=== PATIENT | female | born 1990 | race African-American/Black ===

== ENCOUNTER 2019-10-31 23:01 | Emergency (ER) | payer OTHER ==
[~2019-10-31] VITALS: Ht 162.6 cm; Wt 115.0 kg
[2019-10-31] MEDS ORDERED: AMLO10TA8 PO (23:34)
[2019-11-01] MEDS ORDERED: ONDANSETRON ODT 4 MG TAB.RAPDIS. PO ONE (00:15)
[2019-11-01 00:24] LABS: BARBITURATES NEG (NEG); BENZODIAZEPINES NEG (NEG); CANNABINOIDS NEG (NEG); COCAINE NEG (NEG); METHADONE NEG (NEG); OPIATES NEG (NEG); PHENCYCLIDINE NEG (NEG)
[2019-11-01 00:32] LABS: AMPHETAMINE/METHAMPHETAMINE NEG (NEG)
--- NOTE | 2019-11-01 00:44 | PHYS DOC ---
Past Medical History Past Medical History: Anxiety, Hypertension Past Surgical History: No Surgical History Alcohol Use: None Adult General Chief Complaint Chief Complaint: NAUSEA/VOMITING/DIARRHA HPI HPI 28-year-old female presents to the emergency department with complaints of burning nausea or vomiting. Patient was drinking juice around 10 PM she noticed a burning sensation in her mouth and throat as well as nausea with vomiting. Patient is approximately 8 weeks 6 days. She does have underlying history of hypertension. Blood pressure significantly elevated here in the emergency department. The headache or visual change, chest pain, abdominal pain. She does have complaints of nausea and vomiting however has not vomited in the emergency department. Review of Systems Review of Systems Constitutional: Denies fever or chills [] Respiratory: Denies cough or shortness of breath [] Cardiovascular: No additional information not addressed in HPI [] GI: Denies abdominal pain, + nausea, vomiting, no bloody stools or diarrhea [] : Denies dysuria or hematuria [] Integument: Denies rash or skin lesions [] Neurologic: Denies headache, focal weakness or sensory changes [] All other systems were reviewed and found to be within normal limits, except as documented in this note. Current Medications Current Medications Current Medications Medications (Trade) Dose Ordered Sig/Priyanka Start Time Stop Time Status Last Admin Dose Admin Acetaminophen (Tylenol) 1,000 mg 1X ONCE 11/01/19 02:30 11/01/19 02:31 DC 11/01/19 02:38 1,000 MG Hydralazine HCl (Apresoline Inj) 20 mg STK-MED ONCE 11/01/19 03:15 11/01/19 03:15 DC Labetalol HCl (Normodyne Iv Push) 10 mg 1X ONCE 11/01/19 02:30 11/01/19 02:31 DC 11/01/19 02:40 10 MG Ondansetron HCl (Zofran Odt) 4 mg 1X ONCE 11/01/19 00:15 11/01/19 00:16 DC 11/01/19 00:24 4 MG Allergies Allergies Allergies Coded Allergies Type Severity Reaction Last Updated Verified No Known Drug Allergies 10/31/19 No Physical Exam Physical Exam Constitutional: Well developed, well nourished, no acute distress, non-toxic appearance. [] HENT: Normocephalic, atraumatic, bilateral external ears normal, oropharynx moist, no oral exudates, nose normal. [] Eyes: PERRLA, EOMI, conjunctiva normal, no discharge. [] Cardiovascular:Heart rate regular rhythm, no murmur [] Lungs & Thorax: Bilateral breath sounds clear to auscultation [] Abdomen: Bowel sounds normal, soft, no tenderness, no masses, no pulsatile masses. [] Skin: Warm, dry, no erythema, no rash. [] Back: No tenderness, no CVA tenderness. [] Extremities: No tenderness, no edema. [] Neurologic: Alert and oriented X 3, no focal deficits noted. [] Psychologic: Affect normal, judgement normal, mood normal. [] Current Patient Data Vital Signs Vital Signs Date Time Temp Pulse Resp B/P (MAP) Pulse Ox O2 Delivery O2 Flow Rate FiO2 11/01/19 03:17 92 202/108 10/31/19 23:32 98.5 16 98 Room Air 98.5 Lab Values Laboratory Tests Test 10/31/19 23:16 10/31/19 23:17 11/01/19 00:27 Urine Opiates Screen Neg (NEG) Urine Methadone Screen Neg (NEG) Urine Barbiturates Neg (NEG) Urine Phencyclidine Screen Neg (NEG) Urine Amphetamine/Methamphetamine Neg (NEG) Urine Benzodiazepines Screen Neg (NEG) Urine Cocaine Screen Neg (NEG) Urine Cannabinoids Screen Neg (NEG) Urine Ethyl Alcohol Neg (NEG) POC Urine HCG, Qualitative Hcg positive (Negative) Sodium Level 140 mmol/L (136-145) Potassium Level 3.8 mmol/L (3.5-5.1) Chloride Level 102 mmol/L (98-107) Carbon Dioxide Level 24 mmol/L (21-32) Anion Gap 14 (6-14) Blood Urea Nitrogen 13 mg/dL (7-20) Creatinine 0.8 mg/dL (0.6-1.0) Estimated GFR (Cockcroft-Gault) 103.3 BUN/Creatinine Ratio 16 (6-20) Glucose Level 103 mg/dL (70-99) H Calcium Level 9.1 mg/dL (8.5-10.1) Total Bilirubin 0.3 mg/dL (0.2-1.0) Aspartate Amino Transferase (AST) 16 U/L (15-37) Alanine Aminotransferase (ALT) 14 U/L (14-59) Alkaline Phosphatase 69 U/L (46-116) Total Protein 8.4 g/dL (6.4-8.2) H Albumin 3.5 g/dL (3.4-5.0) Albumin/Globulin Ratio 0.7 (1.0-1.7) L Laboratory Tests 11/01/19 00:27 EKG EKG [] Radiology/Procedures Radiology/Procedures [] Course & Med Decision Making Course & Med Decision Making Pertinent Labs and Imaging studies reviewed. (See chart for details) []28-year-old female presents to the emergency department with complaints of burning nausea or vomiting. Patient was drinking juice around 10 PM she noticed a burning sensation in her mouth and throat as well as nausea with vomiting. Pablo lópez is approximately 8 weeks 6 days. She does have underlying history of hypertension. Blood pressure significantly elevated here in the emergency department. She denies headache or visual change, chest pain, abdominal pain. She does have complaints of nausea and vomiting however has not vomited in the emergency department. Labetalol 10mg IV x 2, Hydralazine 10mg IV x 1 Labs reviewed, no evidence of anion gap acidosis appreciated UDS reviewed Patient's BP improved 189/100 - plan for dc home Recommend follow up with PCP Recommend taking BP medications as prescribed Discussed lab findings Dragon Disclaimer Dragon Disclaimer This electronic medical record was generated, in whole or in part, using a voice recognition dictation system. Departure Departure Impression: Primary Impression: Accelerated hypertension Additional Impression: GERD (gastroesophageal reflux disease) Disposition: HOME, SELF-CARE Condition: IMPROVED Referrals: UNKNOWN PCP NAME (PCP) Patient Instructions: Diet for Gastroesophageal Reflux Disease, Adult, [id number], Gastroesophageal Reflux Disease, Adult, [id number], Hypertension During , [id number] Problem Qualifiers Additional Impression: GERD (gastroesophageal reflux disease) Esophagitis presence: esophagitis presence not specified Qualified Codes: K21.9 - Gastro-esophageal reflux disease without esophagitis TONEY CLARK MD Nov 01, 2019 00:44
[2019-11-01 00:45] LABS: CALCIUM 9.1 mg/dL (8.5-10.1); CREATININE 0.8 mg/dL (0.6-1.0); GFR 103.3; POTASSIUM 3.8 mmol/L (3.5-5.1)
[2019-11-01 00:51] LABS: ALBUMIN 3.5 g/dL (3.4-5.0); ALBUMIN/GLOBULIN RATIO 0.7 (1.0-1.7); TOTAL BILIRUBIN 0.3 mg/dL (0.2-1.0); TOTAL PROTEIN 8.4 g/dL (6.4-8.2)
[2019-11-01] MEDS ORDERED: LABETALOL 20 MG/4 ML DISP.SYRIN. IVP ONE ×2 (01:15→02:30)
[2019-11-01] MEDS ORDERED: ACETAMINOPHEN 500 MG TABLET PO ONE (02:30)
[2019-11-01] MEDS ORDERED: hydrALAZINE 20 MG/ML VIAL. IVP ONE (03:15)
[2019-11-01] MEDS ORDERED: hydrALAZINE 20 MG/ML VIAL. ONE (03:15)
[2019-11-01 03:44] VITALS: BP 193/97
== END 2019-11-01 03:52 | disposition home or self-care (01) ==
LOC: ER 23:01
DX: O16.1 Unspecified maternal hypertension, first trimester (principal); O21.9 Vomiting of pregnancy, unspecified; K21.9 Gastro-esophageal reflux disease without esophagitis; F41.9 Anxiety disorder, unspecified; Z3A.08 8 weeks gestation of pregnancy; Z79.899 Other long term (current) drug therapy
CPT/HCPCS: 36415; 80053; 80307; 81025; 96374; 96375; 96376; 99284; J0360; J3490; Q0162

== ENCOUNTER 2019-12-02 09:46 | Emergency (ER) | payer OTHER ==
[~2019-12-02] VITALS: Ht 160 cm; Wt 114.0 kg
[~2019-12-02 09:46] MED LIST: AMLO10TA8 PO
[2019-12-02] MEDS ORDERED: LABETALOL HCL 100 MG TABLET. PO STA (10:28)
--- NOTE | 2019-12-02 10:31 | PHYS DOC ---
Past Medical History Past Medical History: Anxiety, Hypertension Past Surgical History: No Surgical History Smoking Status: Never Smoker Alcohol Use: None Adult General Chief Complaint Chief Complaint: VAGINAL BLEEDING HPI HPI Patient is a 28 year old female with history of anxiety, hypertension, who presents to the ED today with vaginal bleeding in that began this morning. Patient reports small amount of bleeding. Denies any trauma. She is a 3 para 2 currently 13 weeks . She reports seeing her WOODWORKING MACHINE SETTER on Wednesday this week, she states they did an ultrasound which was normal. Denies any abdominal pain, denies any cramping. Denies any back pain, nausea vomiting. Review of Systems Review of Systems Constitutional: Denies fever or chills [] Eyes: Denies change in visual acuity, redness, or eye pain [] HENT: Denies nasal congestion or sore throat [] Respiratory: Denies cough or shortness of breath [] Cardiovascular: No additional information not addressed in HPI [] GI: Reports vaginal bleeding in . Denies abdominal pain, nausea, vomiting, bloody stools or diarrhea [] : Denies dysuria or hematuria [] Musculoskeletal: Denies back pain or joint pain [] Integument: Denies rash or skin lesions [] Neurologic: Denies headache, focal weakness or sensory changes [] All other systems were reviewed and found to be within normal limits, except as documented in this note. Current Medications Current Medications Current Medications Medications (Trade) Dose Ordered Sig/Priyanka Start Time Stop Time Status Last Admin Dose Admin Labetalol HCl (Trandate) 100 mg 1X STAT 12/02/19 10:28 12/02/19 10:31 DC 12/02/19 10:50 100 MG Allergies Allergies Allergies Coded Allergies Type Severity Reaction Last Updated Verified No Known Drug Allergies 10/31/19 No Physical Exam Physical Exam Constitutional: Well developed, well nourished, no acute distress, non-toxic appearance. [] HENT: Normocephalic, atraumatic, bilateral external ears normal, oropharynx moist, no oral exudates, nose normal. [] Eyes: PERRLA, EOMI, conjunctiva normal, no discharge. [] Neck: Normal range of motion, no tenderness, supple, no stridor. [] Cardiovascular:Heart rate regular rhythm, no murmur [] Lungs & Thorax: Bilateral breath sounds clear to auscultation [] Abdomen: Bowel sounds normal, soft, no tenderness, no masses, no pulsatile masses. [] Pelvic exam-external pelvic appears normal, cervix is visualized, no CMT, no ad nexal tenderness, trace amount of brownish discharge in the vaginal vault. Skin: Warm, dry, no erythema, no rash. [] Back: No tenderness, no CVA tenderness. [] Extremities: No tenderness, no cyanosis, no clubbing, ROM intact, no edema. [] Neurologic: Alert and oriented X 3, normal motor function, normal sensory function, no focal deficits noted. [] Psychologic: Affect normal, judgement normal, mood normal. [] Current Patient Data Vital Signs Vital Signs Date Time Temp Pulse Resp B/P (MAP) Pulse Ox O2 Delivery O2 Flow Rate FiO2 12/02/19 10:50 100 184/88 12/02/19 10:19 98.9 18 100 Room Air 98.9 Lab Values Laboratory Tests Test 12/02/19 09:56 12/02/19 10:25 12/02/19 10:45 Urine Collection Type Unknown Urine Color Yellow Urine Clarity Clear Urine pH 6.0 Urine Specific [place] 1.020 Urine Protein 30 mg/dL (NEG-TRACE) Urine Glucose (UA) Negative mg/dL (NEG) Urine Ketones (Stick) Negative mg/dL (NEG) Urine Blood Large (NEG) Urine Nitrite Negative (NEG) Urine Bilirubin Negative (NEG) Urine Urobilinogen Dipstick 1.0 mg/dL (0.2 mg/dL) Urine Leukocyte Esterase Moderate (NEG) Urine RBC >40 /HPF (0-2) Urine WBC 11-20 /HPF (0-4) Urine Squamous Epithelial Cells Many /LPF Urine Bacteria Few /HPF (0-FEW) Urine Mucus Marked /LPF Urine Opiates Screen Neg (NEG) Urine Methadone Screen Neg (NEG) Urine Barbiturates Neg (NEG) Urine Phencyclidine Screen Neg (NEG) Urine Amphetamine/Methamphetamine Neg (NEG) Urine Benzodiazepines Screen Neg (NEG) Urine Cocaine Screen Neg (NEG) Urine Cannabinoids Screen Neg (NEG) Urine Ethyl Alcohol Neg (NEG) POC Urine HCG, Qualitative Hcg positive (Negative) White Blood Count 5.6 x10^3/uL (4.0-11.0) Red Blood Count 4.12 x10^6/uL (3.50-5.40) Hemoglobin 7.7 g/dL (12.0-15.5) L Hematocrit 25.9 % (36.0-47.0) L Mean Corpuscular Volume 63 fL (79-100) L Mean Corpuscular Hemoglobin 19 pg (25-35) L Mean Corpuscular Hemoglobin Concent 30 g/dL (31-37) L Red Cell Distribution Width 20.8 % (11.5-14.5) H Platelet Count 433 x10^3/uL (140-400) H Neutrophils (%) (Auto) 53 % (31-73) Lymphocytes (%) (Auto) 36 % (24-48) Monocytes (%) (Auto) 8 % (0-9) Eosinophils (%) (Auto) 2 % (0-3) Basophils (%) (Auto) 0 % (0-3) Neutrophils # (Auto) 3.0 x10^3/uL (1.8-7.7) Lymphocytes # (Auto) 2.0 x10^3/uL (1.0-4.8) Monocytes # (Auto) 0.5 x10^3/uL (0.0-1.1) Eosinophils # (Auto) 0.1 x10^3/uL (0.0-0.7) Basophils # (Auto) 0.0 x10^3/uL (0.0-0.2) Platelet Estimate Increased (ADEQUATE) Polychromasia Present Hypochromasia Mod Poikilocytosis Slight Anisocytosis Slight Maternal Serum HCG Beta Subunit 28028 mIU/mL (0-5) H Sodium Level 139 mmol/L (136-145) Potassium Level 3.8 mmol/L (3.5-5.1) Chloride Level 103 mmol/L (98-107) Carbon Dioxide Level 21 mmol/L (21-32) Anion Gap 15 (6-14) H Blood Urea Nitrogen 10 mg/dL (7-20) Creatinine 0.7 mg/dL (0.6-1.0) Estimated GFR (Cockcroft-Gault) 120.6 BUN/Creatinine Ratio 14 (6-20) Glucose Level 96 mg/dL (70-99) Calcium Level 8.6 mg/dL (8.5-10.1) Total Bilirubin 0.3 mg/dL (0.2-1.0) Aspartate Amino Transferase (AST) 11 U/L (15-37) L Alanine Aminotransferase (ALT) 18 U/L (14-59) Alkaline Phosphatase 60 U/L (46-116) Total Protein 7.6 g/dL (6.4-8.2) Albumin 3.1 g/dL (3.4-5.0) L Albumin/Globulin Ratio 0.7 (1.0-1.7) L Ethyl Alcohol Level < 10 mg/dL (0-10) Laboratory Tests 12/02/19 10:45 Laboratory Tests 12/02/19 10:45 Microbiology 12/02/19 Wet Prep - Final, Complete EKG EKG [] Radiology/Procedures Radiology/Procedures []PROCEDURE: OB < 14 WKS OB < 14 WKS DATE: 12/02/2019 10:14 AM INDICATION: Vaginal bleeding, . LMP 08/31/2019. COMPARISON: None. TECHNIQUE: Transabdominal ultrasonography of the pelvis was performed. Color Doppler and duplex were utilized as appropriate. FINDINGS: The uterus measures 10 x 8 x 7 cm. There is living intrauterine gestation with heart rate of 175 beats per minute. [place]-rump length measurement of 3.72 cm corresponds with estimated ultrasound gestational age of 10 weeks and 4 days. There is no free pelvic fluid. The right ovary measures 3.4 x 2.2 x 1.9 cm. The left ovary measures 4.5 x 3.1 x 3.0 cm. No evidence of ovarian torsion. There is normal blood flow to both ovaries by color Doppler with arterial and venous waveforms detected. IMPRESSION: 1. Single living intrauterine gestation. 2. [place]-rump length corresponds with estimated ultrasound gestational age of 10 weeks and 4 days. Electronically signed by: Ana Borrero MD (12/02/2019 11:27 AM) [id number] DICTATED and SIGNED BY: ANA BORRERO MD DATE: 12/02/19 1127 Course & Med Decision Making Course & Med Decision Making Pertinent Labs and Imaging studies reviewed. (See chart for details) This is a 28-year-old female patient 3 para 2 currently 13 weeks presenting to the ED with complaints of vaginal bleeding in that began this morning. Patient had trace amount of brownish discharge in the vaginal vault during physical exam. OB ultrasound noted for an IUP 10 weeks 4 days heart rate 175. Urine analysis is noted for UTI, wet prep noted for BV. Discharged with Flagyl and cephalexin. Provided instructions to maintain bedrest and follow-up with her WOODWORKING MACHINE SETTER next week. Guillermo Disclaimer Guillermo Disclaimer This electronic medical record was generated, in whole or in part, using a voice recognition dictation system. Departure Departure Impression: Primary Impression: Threatened miscarriage Additional Impressions: Urinary tract infection Bacterial vaginosis Disposition: HOME, SELF-CARE Condition: STABLE Referrals: UNKNOWN PCP NAME (PCP) follow up next week Patient Instructions: Bacterial Vaginosis, [id number], - Urinary Tract Infection, Threatened Miscarriage, [id number] Additional Instructions: You have evaluated for vaginal bleeding in . Please maintain bedrest, no strenuous activities, no intercourse until the bleeding has stopped and you been seen by the WOODWORKING MACHINE SETTER. You also have urinary tract infection and bacterial vaginosis, take the prescribed antibiotics until completed. Follow-up with your WOODWORKING MACHINE SETTER next week Scripts Cephalexin (CEPHALEXIN) 500 Mg Tablet 1 TAB PO BID, #14 TAB Prov: AVA GARCIA APRN 12/02/19 Metronidazole (FLAGYL) 500 Mg Tablet 1 TAB PO BID, #14 TAB Prov: AVA GARCIA APRN 12/02/19 Problem Qualifiers Additional Impressions: Urinary tract infection Urinary tract infection type: site unspecified Hematuria presence: without hematuria Qualified Codes: N39.0 - Urinary tract infection, site not specified AVA GARCIA APRN Dec 02, 2019 10:31
[2019-12-02 10:34] LABS: BILIRUBIN,URINE NEGATIVE (NEG); CLARITY,URINE CLEAR; COLOR,URINE YELLOW; NITRITE,URINE NEGATIVE (NEG); PROTEIN,URINE 30 mg/dL (NEG-TRACE)
[2019-12-02 10:40] LABS: AMPHETAMINE/METHAMPHETAMINE NEG (NEG); BARBITURATES NEG (NEG); BENZODIAZEPINES NEG (NEG); CANNABINOIDS NEG (NEG); COCAINE NEG (NEG); METHADONE NEG (NEG); OPIATES NEG (NEG); PHENCYCLIDINE NEG (NEG)
[2019-12-02 10:59] LABS: BACTERIA,URINE FEW /HPF (0-FEW); RBC,URINE >40 /HPF (0-2); SQUAMOUS EPITHELIAL CELL,UR MANY /LPF
[2019-12-02 11:06] LABS: BASO % 0 % (0-3); EOS # 0.1 x10^3/uL (0.0-0.7); EOS % 2 % (0-3); HEMATOCRIT 25.9 % (36.0-47.0); HEMOGLOBIN 7.7 g/dL (12.0-15.5); LYMPH % 36 % (24-48); MEAN CORPUSCULAR HEMOGLOBIN 19 pg (25-35); MEAN CORPUSCULAR HGB CONC 30 g/dL (31-37); MEAN CORPUSCULAR VOLUME 63 fL (79-100); MONO # 0.5 x10^3/uL (0.0-1.1); MONO % 8 % (0-9); NEUT % 53 % (31-73); PLATELET COUNT 433 x10^3/uL (140-400); RED BLOOD COUNT 4.12 x10^6/uL (3.50-5.40); RED CELL DISTRIBUTION WIDTH 20.8 % (11.5-14.5); WHITE BLOOD COUNT 5.6 x10^3/uL (4.0-11.0)
--- NOTE | 2019-12-02 11:30 | RAD ---
OB < 14 WKS DATE: 12/02/2019 10:14 AM INDICATION: Vaginal bleeding, . LMP 08/31/2019. COMPARISON: None. TECHNIQUE: Transabdominal ultrasonography of the pelvis was performed. Color Doppler and duplex were utilized as appropriate. FINDINGS: The uterus measures 10 x 8 x 7 cm. There is living intrauterine gestation with heart rate of 175 beats per minute. [place]-rump length measurement of 3.72 cm corresponds with estimated ultrasound gestational age of 10 weeks and 4 days. There is no free pelvic fluid. The right ovary measures 3.4 x 2.2 x 1.9 cm. The left ovary measures 4.5 x 3.1 x 3.0 cm. No evidence of ovarian torsion. There is normal blood flow to both ovaries by color Doppler with arterial and venous waveforms detected. IMPRESSION: 1. Single living intrauterine gestation. 2. [place]-rump length corresponds with estimated ultrasound gestational age of 10 weeks and 4 days. Electronically signed by: Clem Patrick MD (12/02/2019 11:27 AM) [id number]
[2019-12-02 11:54] LABS: CALCIUM 8.6 mg/dL (8.5-10.1); CREATININE 0.7 mg/dL (0.6-1.0); GFR 120.6; POTASSIUM 3.8 mmol/L (3.5-5.1)
[2019-12-02 12:03] LABS: ALBUMIN 3.1 g/dL (3.4-5.0); ALBUMIN/GLOBULIN RATIO 0.7 (1.0-1.7); TOTAL BILIRUBIN 0.3 mg/dL (0.2-1.0); TOTAL PROTEIN 7.6 g/dL (6.4-8.2)
[2019-12-02 12:40] LABS: PLT ESTIMATE INCREASED (ADEQUATE); POLYCHROMASIA PRESENT
[2019-12-02 12:41] LABS: ANISOCYTOSIS SLIGHT; HYPOCHROMIA MOD; POIKILOCYTOSIS SLIGHT
[2019-12-02] MEDS ORDERED: CEPH500T PO (13:04)
[2019-12-02] MEDS ORDERED: METR500T PO (13:04)
[2019-12-02 13:12] VITALS: BP 160/80
[2019-12-04 20:08] LABS: GC PROBE Negative (Negative)
== END 2019-12-02 13:45 | disposition home or self-care (01) ==
LOC: ER 09:46
DX: O20.0 Threatened abortion (principal); O23.41 Unspecified infection of urinary tract in pregnancy, first trimester; O23.591 Infection of other part of genital tract in pregnancy, first trimester; B96.89 Other specified bacterial agents as the cause of diseases classified elsewhere; O16.1 Unspecified maternal hypertension, first trimester; O99.341 Other mental disorders complicating pregnancy, first trimester; F41.9 Anxiety disorder, unspecified; Z3A.10 10 weeks gestation of pregnancy
CPT/HCPCS: 36415; 76801; 80053; 80307; 81001; 81025; 84702; 85025; 86850; 86900; 86901; 87086; 87491; 87591; 99285; G0480; Q0111

== ENCOUNTER → 2020-01-30 23:42 | Emergency (ER) | payer OTHER ==
[~2020-01-30 23:42] MED LIST changes: +CEPH500T PO; +METR500T PO
== END | disposition home or self-care (01) ==
LOC: ER 23:42
DX: O46.92 Antepartum hemorrhage, unspecified, second trimester (principal)

== ENCOUNTER 2020-01-30 23:54 | Observation (INO) | payer OTHER ==
[2020-01-31 00:18] LABS: BILIRUBIN,URINE SMALL (NEG); CLARITY,URINE CLEAR; COLOR,URINE YELLOW; NITRITE,URINE NEGATIVE (NEG); PH,URINE 6.5 (<5.0-8.0); PROTEIN,URINE 30 mg/dL (NEG-TRACE)
[2020-01-31 00:23] LABS: SQUAMOUS EPITHELIAL CELL,UR MANY /LPF
[2020-01-31 00:24] LABS: AMORPHOUS SEDIMENT,UR PRESENT /HPF; BACTERIA,URINE MODERATE /HPF (0-FEW)
[2020-01-31 00:27] LABS: BARBITURATES NEG (NEG); BENZODIAZEPINES NEG (NEG); CANNABINOIDS NEG (NEG); COCAINE NEG (NEG); METHADONE NEG (NEG); OPIATES NEG (NEG); PHENCYCLIDINE NEG (NEG)
[2020-01-31 00:28] LABS: AMPHETAMINE/METHAMPHETAMINE NEG (NEG)
[2020-01-31] MEDS ORDERED: SMZ/TMP 800/160MG TABLET. PO ONE (01:00)
== END 2020-01-31 00:50 | disposition home or self-care (01) ==
LOC: 3 SO LND 23:54
PROVIDERS: ADMIT Obstetrics & Gynecology; ATTEND Obstetrics & Gynecology
DX: O46.92 Antepartum hemorrhage, unspecified, second trimester (principal); Z3A.20 20 weeks gestation of pregnancy; Z79.899 Other long term (current) drug therapy
CPT/HCPCS: 80307; 81001; 87086; G0379; G0378

== ENCOUNTER 2020-08-29 13:29 | Emergency (ER) | payer OTHER ==
[~2020-08-29] VITALS: Ht 162.6 cm; Wt 106.8 kg
[~2020-08-29 13:29] MED LIST changes: +AMLO-187 PO; -AMLO10TA8 PO
[2020-08-29] MEDS ORDERED: ACETAMINOPHEN 500 MG TABLET PO ONE (14:30)
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
== END 2020-08-29 15:20 | disposition home or self-care (01) ==
LOC: ER 13:29
DX: O26.891 Other specified pregnancy related conditions, first trimester (principal); M54.6 Pain in thoracic spine; G89.11 Acute pain due to trauma; I10 Essential (primary) hypertension; Z3A.00 Weeks of gestation of pregnancy not specified; V49.49XA Driver injured in collision with other motor vehicles in traffic accident, initial encounter; Y92.488 Other paved roadways as the place of occurrence of the external cause; Y93.89 Activity, other specified; Y99.8 Other external cause status
CPT/HCPCS: 81025; 99283